=== PATIENT | male | born 1940 | race Caucasian/White ===

== ENCOUNTER 2020-12-19 14:25 | Outpatient (RCR) | payer MEDICARE ==
[~2020-12-19 14:25] MED LIST: CALTRATE-600 W600 MG PO; CARNITINE; CIPRO 500MG TA500 MG PO; COENZYME Q-1050 MG PO; COQ; COQ10250 MG PO; CQ-10; EPA FISH OIL1000 MG PO; FOLIC ACID 40400 MCG PO; IRON325 M1 PO; LORTAB 5/500 501 TAB PO; MULTI VITAMINS1 TAB PO; MULTIPLE VITAMI1 CAP PO; NORCO 325 MG-51 TAB PO; OSTEO-BI-FLEX 21 TAB PO; PRAVACHOL 40MG40 MG PO; PRILOSEC 20MG20 MG PO; RED YEAST RICE600 MG PO; SINGULAIR 110 MG/TAB PO; TRAVATAN Z 2.52.5 ML OD; TYLENOL 325MG325 MG PO; VITAMIN C500 MG PO; VITAMIN D; VITAMIN D31000 IU PO; XALATAN EYE DROPS OP
== END 2021-03-19 | disposition home or self-care (01) ==
LOC: WSST
DX: R13.10 Dysphagia, unspecified (principal); R05 Cough

== ENCOUNTER → 2020-12-26 | Outpatient (CLI) | payer MEDICARE | LOC: COL.RAD 08:30 | DX: R47.02 Dysphasia (principal); R05 Cough ==

== ENCOUNTER → 2022-06-04 | Outpatient (CLI) | payer MEDICARE | LOC: COL.RAD 07:20 | DX: G44.52 New daily persistent headache (NDPH) (principal) ==

== ENCOUNTER 2023-12-01 05:31 | Day surgery (SDC) | payer MEDICARE ==
[2023-12-01] VITALS (16 sets, daily range): BP systolic 100–130; BP diastolic 39–68; PULSE 57–83; TEMP 97–98.7
[~2023-12-01] VITALS: Ht 175.3 cm; Wt 73.7 kg
[~2023-12-01 05:31] MED LIST changes: +CENTRUM SILVER1 TAB; +FISH OIL1000 MG PO; +FLOMAX 0.40.4 MG/CAP; +LUMIFY2.5 ML OP; +PROFE180 MG PO
[2023-12-01] MEDS ORDERED: CALCIUM 600 MG1 EAC2 PO (06:41)
[2023-12-01] MEDS ORDERED: FOLIC ACID 40400 MCG PO (06:43)
--- NOTE | 2023-12-01 09:13 | NUR ---
PT TO ROOM 330 PER BED WITH REPORT FROM SAMARA RN @[id number]. LUNGS CTA, BOWEL SOUNDS PRESENT. AQUACELL DRESSING TO RIGHT HIP CDI. SCDS AND TEDS BILATERALLY. FAMILY AT BEDSIDE.
--- NOTE | 2023-12-01 19:12 | NUR ---
report received from teresa fong. pt resting in bed watching tv. pt denies pain. call light in reach. all needs met at this time.
--- NOTE | 2023-12-01 20:24 | NUR ---
pt reporting 8/10 pain to the right hip. prn dilaudid administered per orders. call light in reach. all needs met at this time.
--- NOTE | 2023-12-01 21:24 | NUR ---
shift assessment complete, see documentation. pt reports prn dilaudid relieved most of his pain and it is tolerable now. pt relaxing in bed. tolerated hs meds without issue. call light in reach. all needs met at this time.
[2023-12-02] VITALS (8 sets, daily range): BP systolic 92–115; BP diastolic 49–67; PULSE 75–86; TEMP 98.2–98.6
--- NOTE | 2023-12-02 00:34 | NUR ---
pt reports prn oxycodone has relieved his right hip pain. pt reports now 02/06. call light in reach. all needs met at this time.
[2023-12-02 07:02] LABS: HEMATOCRIT 29.9 % (42.0-52.0); HEMOGLOBIN 9.2 g/dl (13.5-18.0)
--- NOTE | 2023-12-02 09:57 | NUR ---
Initial visit; Patient thanked for stopping and states that he is a devout [employer] and believes in the Lord John Chucho. says that is obvious in his smile and happy demeanor. Patient doing well and intends to be discharged from the hospital today. wished him well and offered God's blessings.
--- NOTE | 2023-12-02 12:39 | NUR ---
laundry worker met with pt and his daughter, and son at bedside to discuss discharge planning. Patient reports he lives with his , in [place]. He sees Dr. Green and obtains medications from [facility] with no issues. He reports his , son, and daughter are DPOA. This is confirmed with a copy on file. Pt reports he is independent with [facility] and uses a [facility] for DME. He states he will discharge today and has an appointment for PT set up at [facility] as he is already established there. Discharge Plan: Home with OP PT [facility]
--- NOTE | 2023-12-02 16:17 | NUR ---
DISCHARGE INSTRUCTIONS REVIEWED WITH PT AND FAMILY. CONTACTED PHARMACY FOR MEDS AND THEY WERE GETTING FILLED FOR PT. [facility] WOULD NOT FILL UNLESS THERE WAS A REASON FOR THE RX.
== END 2023-12-02 16:18 | disposition home or self-care (01) ==
LOC: SDCO 05:31 → SURG 08:55 → SDCO 12-02 16:18
PROVIDERS: Orthopaedic Surgery Sports Medicine
DX: M16.11 Unilateral primary osteoarthritis, right hip (principal); K21.9 Gastro-esophageal reflux disease without esophagitis
CPT/HCPCS: OP; A6197; A9284; C1776; J0330; J0665; J0690; J1170; J2250; J2405; J2704; J7120

== ENCOUNTER 2024-04-05 04:54 | Emergency (ER) | payer MEDICARE ==
[2024-04-05] VITALS (7 sets, daily range): BP systolic 83–96; BP diastolic 53–59; PULSE 65–71; TEMP 96.4–97.6
[~2024-04-05] VITALS: Ht 175.3 cm; Wt 65.8 kg
[~2024-04-05 04:54] MED LIST changes: +CALCIUM 600 MG1 EAC2 PO; +ELIQUIS 5MG PO; +FERROUS SU325 MG/TAB PO; +PROTONIX 40MG T40 MG PO; -TRAVATAN Z 2.52.5 ML OD; +TRAVATAN Z 2.52.5 ML OU; +XALATAN EYE DROPS OU
[2024-04-05] MEDS ORDERED: NS 1,000 ML IV ONE (05:15)
[2024-04-05] MEDS ORDERED: Ondansetron 4 MG/2 ML VIAL IV ONE (05:15)
[2024-04-05 05:21] LABS: BASO % 0.4 % (0.0-2.0); EOS # 0.3 K/mm3 (0.0-0.7); EOS % 3.3 % (0.0-4.0); GRAN # 5.5 K/mm3 (1.4-6.5); GRAN % 66.5 % (42.2-75.2); LYMPH # 1.6 K/mm3 (1.2-3.4); LYMPH % 19.7 % (20.0-51.0); MEAN CELL VOLUME 88 fl (80.0-100.0); MEAN CORPUSCULAR HGB CONC 30 g/dl (33.0-37.0); MEAN PLATELET VOLUME 9.6 fl (7.4-10.4); MONO # 0.8 K/mm3 (0.1-0.6); MONO % 9.3 % (1.7-9.3); PLATELET COUNT 380 K/mm3 (130-400); RED BLOOD COUNT 2.56 M/mm3 (4.20-5.60); REDCELL DISTRIBUTION WIDTH-CV 17.1 % (11.5-14.5)
[2024-04-05 05:24] LABS: HEMATOCRIT 22.6 % (42.0-52.0); MEAN CORPUSCULAR HEMOGLOBIN 27 pg (27-31)
[2024-04-05 05:25] LABS: HEMOGLOBIN 6.8 g/dl (13.5-18.0)
[2024-04-05 05:35] LABS: ALBUMIN 2.1 g/dL (3.4-4.8); BILIRUBIN,TOTAL 0.4 mg/dL (0.2-1.2); C-REACTIVE PROTEIN 3.64 mg/dL (0.00-0.50); CALCIUM 8.2 mg/dL (8.4-10.2); CREATININE, serum 1.07 mg/dL (0.72-1.25); POTASSIUM 3.6 mEq/L (3.5-4.5); TOTAL PROTEIN 5.4 g/dl (6.2-8.1)
[2024-04-05] MEDS ORDERED: NS 250 ML IV SCH (06:00)
== END 2024-04-05 10:37 | disposition home or self-care (01) ==
LOC: COL.ER 04:54
PROVIDERS: Emergency Medicine
DX: R55 Syncope and collapse (principal); D64.9 Anemia, unspecified; R79.82 Elevated C-reactive protein (CRP); Z79.01 Long term (current) use of anticoagulants
CPT/HCPCS: J2405; J7030; P9016